=== PATIENT | female | born 1975 | race Caucasian/White ===

== ENCOUNTER 2018-10-22 11:05 | Emergency (ER) | payer BC, OTHER ==
--- NOTE | 2018-10-22 11:12 | ED ---
Neurological HPI - HPI Summary HPI Summary: This patient is a 42 year old F BIBA via EMS to ED with a chief complaint of seizure since [employer]. Patient reports she didnt feel well this morning and had a mary-vu kind of feeling. Patients co-workers found her on the floor at her desk. She was found out-of-it and post-ictal. She slowly came around. Patient has had nocturnal seizures in the past. She is not taking any medications but has seen a neurologist here for her condition. The patient rates the pain 0/10 in severity. Symptoms aggravated by nothing. Symptoms alleviated by nothing. Patient reports MADISON. Patient denies CP. - History of Current Complaint Stated Complaint: SEIZURE PER EMS Hx Obtained From: Patient, EMS Onset/Duration: Sudden Onset, Resolved Onset Severity: Moderate Current Severity: Moderate Seizure Severity: Moderate Number of Seizures: 1 Aggravating: Nothing Alleviating: Nothing Associated Signs and Symptoms: Positive: Headache. Negative: Chest Pain Related Hx: Seizure - Nocturnal seizures - Allergy/Home Medications Allergies/Adverse Reactions: Allergies Allergy/AdvReac Type Severity Reaction Status Date / Time No Known Allergies Allergy Verified 10/22/18 11:48 Home Medications: Home Medications Fibercon TAB* 1 tab PO DAILY 10/22/18 [History Confirmed 10/22/18] PMH/Surg Hx/FS Hx/Imm Hx Endocrine/Hematology History: Denies: Hx Diabetes Cardiovascular History: Denies: Hx Hypertension, Hx Pacemaker/ICD History: Denies: Hx Renal Disease Sensory History: Denies: Hx Hearing Aid Neurological History: Reports: Hx Seizures - Nocturnal seizures Psychiatric History: Denies: Hx Panic Disorder - Surgical History Surgery Procedure, Year, and Place: , tonsillectomy - Family History Known Family History: Negative: Hypertension, Diabetes - Social History Alcohol Use: None Hx Substance Use: No Substance Use Type: Reports: None Hx Tobacco Use: No Smoking Status (MU): Never Smoked Tobacco Review of Systems Negative: Chest Pain Neurological: Other - "out of it", seizure at work Positive: Headache All Other Systems Reviewed And Are Negative: Yes Physical Exam - Summary Physical Exam Summary: VITAL SIGNS: Reviewed. GENERAL: Patient is a well-developed and nourished female who is lying comfortable in the stretcher. Patient is not in any acute respiratory distress. HEAD AND FACE: No signs of trauma. No ecchymosis, hematomas or skull depressions. No sinus tenderness. EYES: PERRLA, EOMI x 2, No injected conjunctiva, no nystagmus. EARS: Hearing grossly intact. Ear canals and tympanic membranes are within normal limits. MOUTH: Oropharynx within normal limits. NECK: Supple, trachea is midline, no adenopathy, no JVD, no carotid bruit, no c- spine tenderness, neck with full ROM. CHEST: Symmetric, no tenderness at palpation. LUNGS: Clear to auscultation bilaterally. No wheezing or crackles. CVS: Regular rate and rhythm, S1 and S2 present, no murmurs or gallops appreciated. ABDOMEN: Soft, non-tender. No signs of distention. No rebound, no guarding, and no masses palpated. Bowel sounds are normal. EXTREMITIES: FROM in all major joints, no edema, no cyanosis or clubbing. NEURO: Alert and oriented x 3. No acute neurological deficits. Speech is normal and follows commands. SKIN: Dry and warm. Triage Information Reviewed: Yes Vital Signs On Initial Exam: Initial Vitals Temp Pulse Resp BP Pulse Ox 97.7 F 85 16 112/83 98 10/22/18 11:27 10/22/18 11:27 10/22/18 11:27 10/22/18 11:27 10/22/18 11:27 Vital Signs Reviewed: Yes Diagnostics - Laboratory Result Diagrams: 10/22/18 11:35 10/22/18 11:35 Lab Statement: Any lab studies that have been ordered have been reviewed, and results considered in the medical decision making process. - Radiology CXR Radiology Interpretation Completed By: Radiologist Summary of Radiographic Findings: NO ACTIVE CARDIOPULMONARY DISEASE IS NOTED. Dr. Wiggins has reviewed this radiology report. - EKG 1151 Cardiac Rate: NL - 86 BPM EKG Rhythm: Sinus Rhythm ST Segment: Normal Ectopy: None Summary of EKG Findings: NSR at 86 BPM, no ST elevations Re-Evaluation - Re-Evaluation First Eval Re-Evaluation Time: 12:57 Comment: Discussed results with patient. Patient will be discharged home w dx of seizures and instructions to follow-up with neurology. Patient understands and agrees with this plan. Course/Dx - Course Assessment/Plan: This patient is a 42 year old F BIBA via EMS to ED with a chief complaint of seizure since [employer]. Patient reports she didnt feel well this morning and had a mary-vu kind of feeling. Patients co-workers found her on the floor at her desk. She was found out-of-it and post-ictal. She slowly came around. Patient has had nocturnal seizures in the past. She is not taking any medications but has seen a neurologist here for her condition. The patient rates the pain 0/10 in severity. Symptoms aggravated by nothing. Symptoms alleviated by nothing. Patient reports MADISON. Patient denies CP. Blood test results without any significant abnormality except for WBCs of 11.5, sodium 134 , glucose 111, lactic acid is 2.4 and likely elevated secondary to her seizure. Chest x-ray shows no acute cardiopulmonary disease. At this time, I discussed my physical exam and findings with Dr. Darnell from neurology and he recommends for the patient to be given Keppra 500 mg IV and to discharge the patient in Keppra prescription for 100 mg twice a day. Also he recommends for the patient to follow up with Dr. Darnell. I discussed my physical exam and findings with the patient and she understands and agrees. - Diagnoses Provider Diagnoses: Seizures - Physician Notifications Discussed Care Of Patient With: Radu Darnell Time Discussed With Above Provider: 12:28 Instructed by Provider To: Have Pt Call For Appt. - Discussed patient case with Dr. Darnell, neuro, who recommended the patient receive Keppra and follow-up in his office. Discharge ED - Sign-Out/Discharge Documenting (check all that apply): Patient Departure - Discharge Patient Received Moderate/Deep Sedation with Procedure: No - Discharge Plan Condition: Stable Disposition: HOME Prescriptions: levETIRAcetam TAB* [Keppra TAB*] 500 mg PO BID #40 tab Ondansetron TAB* [Zofran 4 MG Tab*] 4 mg PO Q6H PRN #10 tab PRN Reason: Nausea Patient Education Materials: Epilepsy (ED) Referrals: Doni Laguna MD [Primary Care Provider] - 3 Days Radu Darnell MD [Medical Doctor] - 3 Days Additional Instructions: FOLLOW UP WITH YOUR PRIMARY CARE PROVIDER IN [address] FOLLOW UP WITH DR. DARNELL , NEUROLOGIST, IN 3 DAYS. RETURN TO THE ED FOR ANY WORSENING OR NEW SYMPTOMS. - Billing Disposition and Condition Condition: STABLE Disposition: Home - Attestation Statements Document Initiated by Scribe: Yes Documenting Scribe: Ha Adler Provider For Whom Scribe is Documenting (Include Credential): Nickolas Wiggins MD Scribe Attestation: I, Ha Adler, scribed for Nickolas Wiggins MD on 10/22/18 at 1844. Scribe Documentation Reviewed: Yes Provider Attestation: The documentation as recorded by the scribe, Ha Adler accurately reflects the service I personally performed and the decisions made by me, Nickolas Wiggins MD Status of Scribe Document: Viewed
[2018-10-22 11:47] LABS: ABS Basophils 0.1 10^3/ul (0-0.2); ABS Eosinophils 0.1 10^3/ul (0-0.6); ABS Lymphocytes 1.4 10^3/ul (1.0-4.8); ABS Monocytes 0.4 10^3/ul (0-0.8); ABS Neutrophils 9.5 10^3/ul (1.5-7.7); Eosinophil % 0.9 %; Hematocrit 41 % (35-47); Hemoglobin 13.5 g/dL (12.0-16.0); Lymphocyte % 12.4 %; Mean Corpuscular HGB Conc 33 g/dL (31-36); Mean Corpuscular Hemoglobin 28 pg (27-31); Mean Corpuscular Volume 85 fL (80-97); Mean Platelet Volume 6.8 fL (7.4-10.4); Platelet Count 335 10^3/uL (150-450); Red Blood Count 4.82 10^6 /uL (3.70-4.87); Red Cell Distribution Width 13 % (10-15); White Blood Count 11.5 10^3/uL (3.5-10.8)
[2018-10-22 11:55] LABS: INR 0.97 (0.82-1.09)
[2018-10-22 12:07] LABS: ALT 23 U/L (7-52); AST 19 U/L (13-39); Albumin 4.3 g/dL (3.2-5.2); Alkaline Phosphatase 60 U/L (34-104); Anion Gap 7 mmol/L (2-11); Blood Urea Nitrogen 13 mg/dL (6-24); CO2 Carbon Dioxide 23 mmol/L (22-32); Calcium 8.8 mg/dL (8.6-10.3); Chloride 104 mmol/L (101-111); EGFR Non-African American 106.6 (>60); Globulin 2.2 g/dL (2-4); Glucose 111 mg/dL (70-100); Magnesium 1.9 mg/dL (1.9-2.7); Potassium 3.9 mmol/L (3.5-5.0); Sodium 134 mmol/L (135-145); Total Protein 6.5 g/dL (6.4-8.9)
[2018-10-22] MEDS ORDERED: Acetaminophen TAB* 325 MG PO ONE (12:25)
[2018-10-22 12:29] LABS: Alcohol < 10 mg/dL (<10)
[2018-10-22] MEDS ORDERED: levETIRAcetam 500 MG IVPREMIX* 500 MG/100 ML BAG IVPB ONE (12:34)
[2018-10-22] MEDS ORDERED: levETIRAcetam TAB* 500 MG PO ONE ×2 (12:41→13:11)
[2018-10-22 12:44] LABS: TSH (Thyroid Stimulating Horm) 1.65 mcIU/mL (0.34-5.60)
[2018-10-22] MEDS ORDERED: Ondansetron INJ* 2 MG/ML VIAL IV ONE (13:11)
[2018-10-22] MEDS ORDERED: Ondansetron ODT TAB* 4 MG PO ONE (13:17)
[2018-10-22 13:27] VITALS: BP 108/67
== END 2018-10-22 13:26 | disposition home or self-care (01) ==
LOC: ED 11:05
DX: R56.9 Unspecified convulsions (principal); R51 Headache
CPT/HCPCS: 36415; 71045; 80053; 80320; 83605; 83735; 84443; 85025; 85610; 85730; 93005; 99283; A9270-GY; G0480